=== PATIENT | male | born 1985 | race Caucasian/White ===

== ENCOUNTER → 2025-03-17 15:05 | Outpatient (BNVA) | payer OTHER, SELFPAY | PROVIDERS: PCP Family Medicine; Visit Provider Family Medicine | DX: I10 Essential (primary) hypertension (principal) | CPT/HCPCS: 80053; 85025 ==

== ENCOUNTER → 2025-04-07 15:45 | Outpatient (BNVA) | payer OTHER, SELFPAY | PROVIDERS: PCP Family Medicine; Visit Provider Family Medicine | DX: D58.2 Other hemoglobinopathies (principal); R79.89 Other specified abnormal findings of blood chemistry; R17 Unspecified jaundice | CPT/HCPCS: 82607; 82728; 82746; 83540; 86705; 86706; 86709; 86803; 87340 ==

== ENCOUNTER 2025-04-10 15:41 | Outpatient (CLI) | payer OTHER, SELFPAY ==
[2025-04-10 16:19] LABS: Hemoglobin 17.10 g/dL (11.27-16.99)
[2025-04-10 17:27] LABS: Transferrin 299 mg/dL (200-360)
== END 2025-04-10 15:42 | disposition home or self-care (01) ==
PROVIDERS: PCP Family Medicine; Visit Provider Family Medicine
DX: R79.89 Other specified abnormal findings of blood chemistry (principal); D58.2 Other hemoglobinopathies; R17 Unspecified jaundice
CPT/HCPCS: 36415; 81256; 83010; 84466; 85018

== ENCOUNTER 2025-05-26 15:09 | Oncology outpatient (recurring) (ONCR) | payer OTHER, SELFPAY ==
[2025-05-22 21:14] LABS: BCR ABL1 (IS) 0.000 (0.000); BCR ABL1/ALB1 % 0.000 (0.000); P190 BCR ALB1 NOT DETECTED; P190 BCR ALB1 Yes Test Yes; P210 BCR ALB1 NOT DETECTED; P210 BCR ALB1 Yes Test Yes; Source blood
[2025-05-26 12:45] LABS: CALR Exon 9 Mutation NOT DETECTED (NOT DETECTED); JAK2 Exon 12 Mutation NOT DETECTED (NOT DETECTED); JAK2 V617 Clinical Indication polycythemia; MPL Exon 10 Mutation NOT DETECTED (NOT DETECTED); Specimen Source blood
== END 2025-06-08 23:59 | disposition home or self-care (01) ==
PROVIDERS: PCP Family Medicine; Visit Provider Internal Medicine Medical Oncology
DX: Z53.9 Procedure and treatment not carried out, unspecified reason (principal)
CPT/HCPCS: 36415; 81206; 81207; 81219; 81270; 81279; 81339